=== PATIENT | male | born 1955 | race Caucasian/White ===

== ENCOUNTER 2019-03-03 16:14 | Emergency (ER) | payer OTHER ==
[~2019-03-03] VITALS: Ht 177.8 cm; Wt 104.3 kg
[2019-03-03 17:40] LABS: Basophils # (auto) 0.1 uL; Basophils % (auto) 0.9 % (0.0-2.0); Eosinophils # (auto) 0 uL; Eosinophils % (auto) 0.3 % (0.0-7.0); Hematocrit 40.3 % (41.0-53.0); Hemoglobin 13.8 g/dL (13.5-17.5); Lymphocytes # (auto) 1.7 uL; Lymphocytes % (auto) 11.1 % (10.0-50.0); Mean Corpuscular Hemoglobin 33.7 pg (28.0-32.0); Mean Corpuscular Hgb Conc. 34.2 g/dL (32.0-36.0); Mean Corpuscular Volume 98.5 fL (80.0-100.0); Monocytes # (auto) 2.1 uL; Monocytes % (auto) 14.4 % (0.0-12.0); Neutrophils # (auto) 10.9 uL; Neutrophils % (auto) 73.3 % (37.0-80.0); Nucleated Red Blood Cells % 0.1 %; Platelet Count (auto) 201 10^3/uL (140-450); Red Blood Cells 4.09 10^6/uL (4.5-5.90); Red Cell Distribution Width 12.7 % (11.8-14.3); White Blood Cell 14.9 10^3/uL (4.4-10.8)
[2019-03-03 18:04] LABS: Alanine Aminotransferase 34 U/L (16-61); Albumin 3.9 g/dL (3.4-5.0); Anion Gap 9 (5-15); Aspartate Aminotransferase 19 U/L (15-37); BUN/Creatinine Ratio 20.8; Blood Urea Nitrogen 32 mg/dL (7-18); Calcium 9.3 mg/dL (8.5-10.1); Carbon Dioxide 24 mmol/L (21-32); Chloride 102 mmol/L (98-107); GFR African American 59 mL/min; GFR Non-African American 49 mL/min; Glucose 122 mg/dL (74-106); Potassium 4.2 mmol/L (3.5-5.1); Sodium 135 mmol/L (136-145)
[2019-03-03 18:04] LABS: Urine Bacteria NONE SEEN /hpf (None Seen); Urine Blood Negative /uL (Negative); Urine Hyaline Cast FEW /lpf (0 - 2); Urine Mucus FEW (None Seen); Urine Specific Gravity 1.036 (1.001-1.035); Urine WBC 1 /hpf (0 - 3)
[2019-03-03 18:11] LABS: Alkaline Phosphatase 42 U/L (45-117); Bilirubin, Total 0.8 mg/dL (0.2-1.0); Total Protein 8.4 g/dL (6.4-8.2)
[2019-03-03 23:00] VITALS: BP 127/77
[2019-03-03] MEDS ORDERED: cefTRIAXone 1GM/50ML D5W 50 ML IV ONE (23:00)
[2019-03-03] MEDS ORDERED: metroNIDAZOLE 500MG/100ML 100 ML IV ONE (23:00)
== END 2019-03-03 23:35 | disposition left against medical advice (07) ==
LOC: ER 16:19
DX: K35.80 Unspecified acute appendicitis (principal); D72.829 Elevated white blood cell count, unspecified; E78.00 Pure hypercholesterolemia, unspecified; I10 Essential (primary) hypertension; Z88.0 Allergy status to penicillin
CPT/HCPCS: 36415; 74176; 80053; 81001; 84484; 85025; 93005

== ENCOUNTER 2019-03-04 01:45 | Inpatient (IN) | payer OTHER ==
[~2019-03-04] VITALS: Ht 177.8 cm; Wt 110.0 kg
[2019-03-04] MEDS ORDERED: ACETAMINOPHEN 500 MG TAB PO PRN (02:30)
[2019-03-04] MEDS ORDERED: ONDANSETRON HCL 4 MG/2 ML VIAL IV PRN ×2 (02:30→16:30)
[2019-03-04] MEDS ORDERED: cefTRIAXone 1GM/50ML D5W 50 ML IV ONE (02:30)
[2019-03-04] MEDS ORDERED: DOCUSATE SOD 100 MG CAP PO PRN (02:30)
[2019-03-04] MEDS ORDERED: MORPHINE SULF INJ 2 MG/ML SYRINGE 1ML IV PRN (02:30)
[2019-03-04] MEDS ORDERED: HYDROcodone-ACET 5/325MG TAB PO PRN (02:30)
[2019-03-04] MEDS: SODIUM CHLORIDE 0.9% 1,000 ML IV SCH ×2 (03:31→06:31)
[2019-03-04] MEDS ORDERED: LORazepam 2MG/ML-1ML VIAL IV ONE (03:45)
[2019-03-04 05:39] LABS: Basophils # (auto) 0.1 uL; Eosinophils # (auto) 0 uL; Eosinophils % (auto) 0.2 % (0.0-7.0); Hemoglobin 12.8 g/dL (13.5-17.5); Lymphocytes # (auto) 1.2 uL; Monocytes # (auto) 1.7 uL
[2019-03-04 05:43] LABS: Basophils % (auto) 0.7 % (0.0-2.0); Hematocrit 37.1 % (41.0-53.0); Lymphocytes % (auto) 9.6 % (10.0-50.0); Mean Corpuscular Hemoglobin 34.3 pg (28.0-32.0); Mean Corpuscular Hgb Conc. 34.5 g/dL (32.0-36.0); Mean Corpuscular Volume 99.3 fL (80.0-100.0); Neutrophils # (auto) 9.9 uL; Neutrophils % (auto) 76.5 % (37.0-80.0); Platelet Count (auto) 179 10^3/uL (140-450); Red Blood Cells 3.74 10^6/uL (4.5-5.90); Red Cell Distribution Width 12.8 % (11.8-14.3)
[2019-03-04 06:00] VITALS: BP 153/75
[2019-03-04 06:02] LABS: BUN/Creatinine Ratio 26.2; Calcium 9.4 mg/dL (8.5-10.1); Potassium 4.2 mmol/L (3.5-5.1)
[2019-03-04 06:20] VITALS: BP 153/75
[2019-03-04] MEDS: metroNIDAZOLE 500MG/100ML 100 ML IV SCH ×3 (06:31→21:20)
--- NOTE | 2019-03-04 06:35 | NUR ---
MS admit from ER ELSIE WHITE admitted to tele/MS after SBAR received. Patient oriented to CESILIA CERVANTES RN primary RN, unit, room, bed, and unit policies regarding patient care and visiting hours. Patient weighed by bed scale and encouraged to call if they need something. All questions and concerns addressed, patient verbalized understanding. Note:
--- NOTE | 2019-03-04 08:00 | NUR ---
Opening Shift Note Assumed care of patient, awake and alert. No S/S of distress/SOB or pain. Instructed on POC and to call for assist PRN, will continue to monitor for changes Q1hr and PRN.
[2019-03-04 09:00] VITALS: BP 112/66
[2019-03-04 13:00] VITALS: BP_SYST 121; BP_SYST 126; BP_DIAS 74; BP_DIAS 78
[2019-03-04 13:31] LABS: INR 1.02 (0.9-1.15); Partial Thromboplastin Time 28.8 sec (23.64-32.05)
[2019-03-04 14:17] LABS: Urine WBC None Seen /hpf (0 - 3)
[2019-03-04 14:26] LABS: Urine Bacteria NONE SEEN /hpf (None Seen); Urine Blood Negative /uL (Negative); Urine Specific Gravity 1.025 (1.001-1.035)
--- NOTE | 2019-03-04 14:50 | NUR ---
Patient left to OR.
[2019-03-04] MEDS ORDERED: LEVOFLOXACIN 500MG 100 ML IV ONE (14:53)
[2019-03-04] MEDS ORDERED: SUCCINYLCHOLINE CHLORIDE 20 MG/ML 10ML VIAL IV ONE (14:58)
[2019-03-04] MEDS ORDERED: MIDAZOLAM HCL 1MG/1ML-2 ML VIAL ONE (15:04)
[2019-03-04] MEDS ORDERED: fentaNYL CITRATE 100 MCG/2 ML VL ONE (15:04)
[2019-03-04] MEDS ORDERED: MEPERIDINE HCL (50 MG/ML) 1 ML VIAL ONE (15:04)
[2019-03-04] MEDS ORDERED: PROPOFOL 10 MG/ML 20 ML IV ONE (15:12)
[2019-03-04] MEDS ORDERED: DexAMETHasone SOD PHOS 10MG/1ML VIAL INJ ONE (15:12)
[2019-03-04] MEDS ORDERED: ROCURONIUM 10MG/ML 10ML VIAL IV ONE (15:19)
[2019-03-04] MEDS ORDERED: MIDAZOLAM HCL 1MG/1ML-2 ML VIAL IV PRN (16:30)
[2019-03-04] MEDS ORDERED: LABETALOL HCL 5 MG/ML 4ML SYRINGE IV PRN (16:30)
[2019-03-04] MEDS ORDERED: KETOROLAC TROMETH 30 MG/ML 1ML VIAL IV ONE (16:30)
[2019-03-04] MEDS ORDERED: MORPHINE SULFATE 4 MG/ML SYR/VIAL IV PRN (16:30)
[2019-03-04] MEDS ORDERED: ePHEDrine SULFATE 50 MG/ML AMP IV PRN (16:30)
[2019-03-04] MEDS ORDERED: HYDROmorphone HCL 2 MG/ML VL IV PRN (16:30)
--- NOTE | 2019-03-04 17:10 | NUR ---
Patient came back to the floor, s/p lap appendectomy, there is 3 incision with HAO drain. Dressing at HAO site is bleeding, reinforced with gauze, will continue to monitor. Patient denied any pain at this time.
--- NOTE | 2019-03-04 17:24 | NUR ---
Explained to the patient how to use IS, patient verbalized understanding.
--- NOTE | 2019-03-04 18:45 | NUR ---
HAO DRAIN EMPTY 100 ML OF SEROSANGUINEOUS , WILL CONTINUE TO MONITOR.
[2019-03-04 22:00] VITALS: BP 128/72
[2019-03-05 05:00] VITALS: BP 113/50
[2019-03-05] MEDS: metroNIDAZOLE 500MG/100ML 100 ML IV SCH ×3 (05:17→21:20)
--- NOTE | 2019-03-05 06:01 | NUR ---
HAO DRAIN OUTPUT IS 50ML, SANGUINOUS.
[2019-03-05 06:29] LABS: Basophils # (auto) 0 uL; Basophils % (auto) 0.3 % (0.0-2.0); Eosinophils # (auto) 0 uL; Hematocrit 36.7 % (41.0-53.0); Hemoglobin 12.6 g/dL (13.5-17.5); Lymphocytes # (auto) 0.5 uL; Lymphocytes % (auto) 4.7 % (10.0-50.0); Mean Corpuscular Hgb Conc. 34.3 g/dL (32.0-36.0); Monocytes # (auto) 0.9 uL; Monocytes % (auto) 8.6 % (0.0-12.0); Neutrophils # (auto) 9.1 uL; Neutrophils % (auto) 86.4 % (37.0-80.0); Platelet Count (auto) 173 10^3/uL (140-450); Red Blood Cells 3.71 10^6/uL (4.5-5.90); Red Cell Distribution Width 12.5 % (11.8-14.3); White Blood Cell 10.5 10^3/uL (4.4-10.8)
[2019-03-05] MEDS: cefTRIAXone 1GM/50ML D5W 50 ML IV SCH (08:55)
[2019-03-05 09:00] VITALS: BP 135/76
[2019-03-05] MEDS: SODIUM CHLORIDE 0.9% 1,000 ML IV SCH (11:50)
[2019-03-05 13:00] VITALS: BP 136/71
--- NOTE | 2019-03-05 14:31 | NUR ---
Nutrition Assessment Notes please see attached link for complete assessment Est. Needs ABW 94 [id number] kcal (20-23 kcal/kgBW), 94-103 gms pro (1.0-1.1 gms/kgBW). Will continue to monitor pertinent labs and reassess nutrient need prn Addendum: 03/05/19 at [address] Amended: Links added.
--- NOTE | 2019-03-05 15:35 | NUR ---
PATIENT AMBULATING IN HALLWAYS AFTER BEING EDUCATED THE IMPORTANCE OF AMBULATING. PATIENT AMBULATES WITH A STEADY GAIT. AND DENIES ANY SOB OR PAIN. WILL CONTINUE TO MONITOR
--- NOTE | 2019-03-05 16:32 | NUR ---
D/C Planning Per consult for home health for HAO drain Care. Contact [facility] Ph:) Fax:) faxed medical records. Per [place] from [facility] Pt has been accepted and service to start within 48hrs upon d/c day. Contact [facility] Ph:) Fax:) faxed medical records requesting authorization. Addendum: 03/05/19 at 1635 by JANI GUTIERREZ Amended: Links added. Addendum: 03/05/19 at 1638 by JANI GUTIERREZ Hiro Tovar.
[2019-03-05 17:00] VITALS: BP 141/80
--- NOTE | 2019-03-05 18:28 | NUR ---
20CC OF SEROSANGUINEOUS DRAINAGE FROM HAO DRAIN EMPTIED DURING SHIFT
--- NOTE | 2019-03-05 19:47 | NUR ---
Opening Shift Note Assumed care of patient, awake and alert. No S/S of distress/SOB or pain, bowel sounds present, abdominal binder on, dressing is clean, dry and intact, HAO drain in place, encouraged to use IS and ambulate. Instructed on POC and to call for assist PRN, will continue to monitor for changes Q1hr and PRN.
--- NOTE | 2019-03-05 20:20 | NUR ---
PATIENT IS AMBULATING AROUND HALLWAY, NO C/O PAIN, REPORTED PASSING OF GAS, DENIES ANY NAUSEA. WILL KEEP MONITORING.
[2019-03-05 21:45] VITALS: BP 144/72
[2019-03-06 05:14] VITALS: BP 138/91
[2019-03-06] MEDS: metroNIDAZOLE 500MG/100ML 100 ML IV SCH ×2 (05:44→14:00)
--- NOTE | 2019-03-06 06:09 | NUR ---
HAO DRAIN OUTPUT IS 20ML, SANGUINOUS.
[2019-03-06] MEDS: cefTRIAXone 1GM/50ML D5W 50 ML IV SCH (08:42)
[2019-03-06 09:00] VITALS: BP 146/77
--- NOTE | 2019-03-06 10:00 | NUR ---
PATIENT AMBULATING HALLWAYS PATIENT AMBULATING IN HALLWAYS USING STEADY GAIT AND SHOWING NO S/S OF DISTRESS OR SOB
--- NOTE | 2019-03-06 10:35 | NUR ---
PAGED DR AUGUSTE PER HE WILL SEND SOMEONE TO CHECK ON PATIENT HAO DRAIN TO SEE IF IT CAN BE REMOVED PRIOR TO DISCHARGE.
[2019-03-06 11:43] VITALS: BP 146/77
[2019-03-06 13:00] VITALS: BP 139/71
--- NOTE | 2019-03-06 13:23 | NUR ---
[place] WITH DR AUGUSTE PAGED PER PATIENT FLORENCE, WITH DR AUGUSTE, REMOVED HAO DRAIN BUT ADVISED PATIENT SHE WILL BE BACK TO REMOVE SUTURE. FLORENCE PAGED 3 TIMES. PATIENT WANTS TO LEAVE. WILL TRY TO PAGE ONE MORE TIME.
--- NOTE | 2019-03-06 14:15 | NUR ---
[facility] OFFICE STAFF CHARMAINE CALLED BACK PER CHARMAINE PATIENT IS OK TO LEAVE.
--- NOTE | 2019-03-06 14:15 | NUR ---
DISCHARGE NOTE PATIENT ALERT AND ORIENTED X4 ALL DISCHARGE INSTRUCTIONS GIVEN ALL QUESTIONS AND CONCERNS ADDRESSED/ANSWERED. TELEBOX REMOVED CLEANED AND SENT TO ICU. IV REMOVED USING [employer] INTACT PRESSURE DRESSING APPLIED PATIENT TOLERATED WELL. DRESSING DRY AND INTACT. RONDA INTACT AND ASYMPTOMATIC SHOWING NO S/S OF REDNESS OR SWELLING. NO DRAINAGE NOTED.PATIENT AMBULATED OUT TO PERSONAL VEHICLE USING A STEADY GAIT DENYING ANY PAIN, SOB OR DISTRESS.
--- NOTE | 2019-03-06 14:25 | NUR ---
Assessment Pt is a 63 yr old alert and oriented male. Pt lives alone, is ambulatory and independent with ADL's, cooking and cleaning. Pt's friend Fredo Grace is his emergency contact at [phone]. Pt admitted with appendicitis and had it removed. Pt states that he is currently employed and not interested in AD. Pt stated that he might be sent home with . Pt will transport himself home upon d/c. No needs or concerns at this time. Addendum: 03/06/19 at 1430 by BRIDGER HUANG Amended: Links added.
== END 2019-03-06 14:15 | disposition home health service (06) | DRG 343 ==
LOC: ER 01:53 → OVERFLOW 01:54 → TELE-CENTR 05:50 → CENTRAL 06:08 → TELE-CENTR 17:10
PROVIDERS: ADMIT Nurse Practitioner Family; ATTEND Hospitalist
PROC: 0DTJ4ZZ Resection of Appendix, Percutaneous Endoscopic Approach (ICD-10-PCS; principal; 2019-03-04 15:02)
DX: K35.80 Unspecified acute appendicitis (principal); I10 Essential (primary) hypertension; E78.5 Hyperlipidemia, unspecified; E66.01 Morbid (severe) obesity due to excess calories; K57.30 Diverticulosis of large intestine without perforation or abscess without bleeding; Z88.0 Allergy status to penicillin
CPT/HCPCS: 36415; 71045; 80048; 81001; 85025; 85610; 85730; 86850; 86900; 86901; 87040; G0378; J0330; J0696; J1100; J1956; J2250; J2704; J3490